=== PATIENT | male | born 1960 | race Caucasian/White ===

== ENCOUNTER 2018-02-28 22:36 | Emergency (ER) | payer BC, OTHER ==
[2018-02-28 22:40] VITALS: TEMP 98.2; BMI 26.4
[2018-03-01] MEDS ORDERED: LIDOCAINE HCL 2% (50ML VIAL) SQ ONE (00:27)
[2018-03-01] MEDS ORDERED: LIDOCAINE HCL 2% (20ML MULTI-DOSE VIAL) NR ONE (00:29)
--- NOTE | 2018-03-01 00:40 | PDOC ---
History of Present Illness - General Chief Complaint: Injury Stated Complaint: FINGER INJURY Time Seen by Provider: 03/01/18 00:13 History Source: Patient - History of Present Illness Initial Comments: 03/01/18 01:14 57 year old male with right 3 digit deformity and pain after twisting a towel to drain water. 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2 F 82 18 125/76 98 02/28/18 22:39 02/28/18 22:39 02/28/18 22:39 02/28/18 22:39 02/28/18 22:39 - Physical Exam General Appearance: Yes: Appropriately Dressed Extremity: positive: Normal Capillary Refill, Other (right 3rd digit limited ROM at metacarpophlageal joint, ) Integumentary: positive: Normal Color, Dry, Warm Neurologic: positive: Fully Oriented, Alert, Normal Mood/Affect Procedures - Joint Reduction Right Joint Reduction Site: right: Finger (3rd digit) Pre-Procedure NV Exam: normal Conscious Sedation: Yes Finger Block: 3rd digit Anesthetic: 2% Lidocaine Amount (mL): 2 Complications: No Post Joint Reduction Film: joint reduced Splint: Yes Progress: 03/01/18 01:16 post reduction xray normal alignment ED Treatment Course - RADIOLOGY Radiology Studies Ordered: Category Date Time Status FINGER(S) RIGHT [RAD] Stat Radiology 03/01/18 00:39 Ordered - Medications Given in the ED: ED Medications Discontinued Medications Generic Name Dose Route Start Last Admin Trade Name Freq PRN Reason Stop Dose Admin Lidocaine HCl 2 mg 03/01/18 00:27 03/01/18 00:30 Xylocaine 2% SQ 03/01/18 00:28 2 mg ONCE ONE Administration Progress Note - Progress Note Progress Note: A: metacarpalphalageal joint dislocation P: xray dislocation reduced. finger splint and hand surgery follow up./ *DC/Admit/Observation/Transfer Diagnosis at time of Disposition: Dislocation, finger closed Qualifiers: Encounter type: initial encounter Qualified Code(s): S63.259A - Unspecified dislocation of unspecified finger, initial encounter Metacarpophalangeal joint dislocation Qualifiers: Encounter type: initial encounter Qualified Code(s): S63.269A - Dislocation of metacarpophalangeal joint of unspecified finger, initial encounter - Discharge Dispostion Disposition: HOME Condition at time of disposition: Stable - Referrals Referrals: Kiko Lainez MD [Primary Care Provider] - Seth Clemente MD [Staff Physician] - Call tomorrow - Patient Instructions Printed Discharge Instructions: DI for Finger Dislocation Additional Instructions: you may take tylenol for pain. keep finger in splint - Post Discharge Activity Forms/Work/School Notes: Back to Work
[2018-03-01 01:28] VITALS: BP 128/72; PULSE 76
== END 2018-03-01 01:29 | disposition home or self-care (01) ==
LOC: JERFT 22:36 → JER 22:36
PROC: 0RSWXZZ Reposition Right Finger Phalangeal Joint, External Approach (ICD-10-PCS; principal; 2018-02-28)
PROC: 2W3JX1Z Immobilization of Right Finger using Splint (ICD-10-PCS; 2018-02-28)
DX: S63.282A Dislocation of proximal interphalangeal joint of right middle finger, initial encounter (principal); X50.9XXA Other and unspecified overexertion or strenuous movements or postures, initial encounter; Y93.89 Activity, other specified; Y92.89 Other specified places as the place of occurrence of the external cause; Y99.8 Other external cause status
CPT/HCPCS: 73130-TC-RT-FY; 73140-TC-RT-FY; 99281-25